=== PATIENT | female | born 2000 | race Caucasian/White ===

== ENCOUNTER 2022-06-12 00:13 | Emergency (ER) | payer MEDICAID ==
[~2022-06-12] VITALS: Ht 154.9 cm; Wt 70.4 kg
[2022-06-12] MEDS ORDERED: KETOROLAC 60MG/2ML VIAL IM STA (02:36)
[2022-06-12] MEDS ORDERED: METOCLOPRAMIDE HCL 10MG/2ML VIAL IM ONE (02:45)
[2022-06-12 03:05] LABS: CLARITY URINE CLOUDY (CLEAR); COLOR URINE YELLOW (YELLOW); KETONES URINE TRACE (NEGATIVE); LEUKOCYTE ESTERASE URINE TRACE (NEGATIVE); NITRITE URINE NEGATIVE (NEGATIVE); OCCULT BLOOD URINE NEGATIVE (NEGATIVE); PH URINE 6.5 (4.5-8.0); PROTEIN URINE TRACE (NEGATIVE); SPECIFIC GRAVITY URINE 1.029 (1.005-1.030)
[2022-06-12 03:41] VITALS: BP 110/56
== END 2022-06-12 04:58 | disposition left against medical advice (07) ==
LOC: ER 00:13
DX: R51.9 Headache, unspecified (principal)
CPT/HCPCS: 81003; 81025; 96372; 99284; J1885; J2765